=== PATIENT | female | born 1990 | race African-American/Black ===

== ENCOUNTER 2018-02-06 22:02 | Emergency (ER) | payer MEDICAID ==
[~2018-02-06] VITALS: Ht 175.3 cm; Wt 64.0 kg
[2018-02-07 04:35] VITALS: BP 105/72
== END 2018-02-07 05:02 | disposition home or self-care (01) ==
LOC: ER 22:02
DX: L30.9 Dermatitis, unspecified (principal); F12.10 Cannabis abuse, uncomplicated
CPT/HCPCS: 81025; 99283; Z7610